=== PATIENT | female | born 1930 | race Caucasian/White ===

== ENCOUNTER → 2016-03-29 | Outpatient (CLI) | payer OTHER, MEDICARE ==
[~2016-03-29] MED LIST: ATV5 PO; CLB200 PO; LEVO100T84 PO; LRT5 PO; NXM/40 PO
[2016-03-29 18:09] LABS: THYROID STIMULATING HORMONE 0.162 uIu/ml (0.300-4.500)
== END | disposition home or self-care (01) ==
LOC: C.LABBFT 16:54
PROVIDERS: ATTEND Internal Medicine
DX: E03.9 Hypothyroidism, unspecified (principal); E55.9 Vitamin D deficiency, unspecified

== ENCOUNTER → 2016-05-10 | Outpatient (CLI) | payer OTHER, MEDICARE | END | disposition home or self-care (01) | LOC: C.LABBFT 14:28 | PROVIDERS: ATTEND Internal Medicine | DX: E03.9 Hypothyroidism, unspecified (principal) ==

== ENCOUNTER → 2016-10-04 | Outpatient (CLI) | payer OTHER, MEDICARE ==
--- NOTE | 2016-10-04 11:20 | DIAGNOSTIC IMAGING REPORT ---
ULTRASOUND OF THE PELVIS CLINICAL HISTORY: Endometrial thickening. COMPARISON STUDY: Pelvic ultrasound dated 10/31/2015 TECHNIQUE: Real-time, grayscale, and color flow sonography of the pelvis is performed transabdominally. Images are reviewed in the transverse and longitudinal planes. The patient declined the endovaginal examination. FINDINGS: Uterus: The uterus is atrophic and heterogeneous in echotexture, measuring 5.7 x 2.4 x 3.1 cm. Endometrium: The endometrium is normal in appearance, and the endometrial stripe is normal in thickness measuring up to 0.5 cm. Ovaries: The ovaries were not visualized on this transabdominal examination. Pelvis: There is no free fluid in the cul-de-sac. No concerning adnexal lesion is seen. IMPRESSION: 1. The endometrium appears thickened for age measure up to 5 mm. Gynecology follow-up is recommended. 2. The ovaries were not visualized on this transabdominal examination. 3. The patient declined the endovaginal assessment. Electronically signed by: Abrahan Pena M.D. 10/04/2016 11:19 AM Dictated Date/Time: 10/04/2016 11:17 AM
== END | disposition home or self-care (01) ==
LOC: C.ULTR 10:28
PROVIDERS: ATTEND Internal Medicine
DX: R93.8 Abnormal findings on diagnostic imaging of other specified body structures (principal)

== ENCOUNTER → 2016-10-22 | Outpatient (CLI) | payer OTHER, MEDICARE ==
[2016-10-22 12:33] LABS: BASO % 0.6 %; BASO ABS # 0.04 K/uL (0-0.2); COMPLETE YES; EOS % 3.1 %; IG% 0.3 %; LYMPH ABS # 1.78 K/uL (1.2-3.4); MEAN CELL VOLUME 93.8 fL (80-100); MEAN CORPUSCULAR HEMOGLOBIN 32.2 pg (25-34); MEAN CORPUSCULAR HGB CONC 34.4 g/dl (32-36); MEAN PLATELET VOLUME 10.5 fL (7.4-10.4); MONO % 8.3 %; NEUT % 62.7 %; PLATELET COUNT 218 K/uL (130-400); RED BLOOD COUNT 4.16 M/uL (4.2-5.4); WHITE BLOOD COUNT 7.13 K/uL (4.8-10.8)
[2016-10-22 12:44] LABS: ALT/SGPT 18 U/L (12-78); AST/SGOT 20 U/L (15-37); BLOOD UREA NITROGEN 16 mg/dl (7-18); BUN/CREATININE RATIO 21.4 (10-20); CALCIUM 9.1 mg/dl (8.5-10.1); CARBON DIOXIDE 29 mmol/L (21-32); CHLORIDE 108 mmol/L (98-107); CREATININE 0.73 mg/dl (0.60-1.20); GLUCOSE 85 mg/dl (70-99); POTASSIUM 4.4 mmol/L (3.5-5.1); SODIUM 142 mmol/L (136-145)
[2016-10-22 12:54] LABS: ALKALINE PHOSPHATASE 84 U/L (45-117)
== END | disposition home or self-care (01) ==
LOC: C.LABBFT 09:58
PROVIDERS: ATTEND Internal Medicine
DX: E03.9 Hypothyroidism, unspecified (principal); R68.81 Early satiety; F03.90 Unspecified dementia, unspecified severity, without behavioral disturbance, psychotic disturbance, mood disturbance, and anxiety; E55.9 Vitamin D deficiency, unspecified

== ENCOUNTER → 2016-10-28 | Outpatient (CLI) | payer OTHER, MEDICARE ==
--- NOTE | 2016-10-28 11:11 | DIAGNOSTIC IMAGING REPORT ---
RIGHT RIBS UNILATERAL W/CHEST CLINICAL HISTORY: 86 years-old Female presenting with RIGHT RIB PAIN Right. TECHNIQUE: PA view of the chest and frontal and oblique views of the right ribs were obtained. COMPARISON: 04/15/2011. FINDINGS: Aortic atherosclerosis. Cardiac silhouette normal in size. Suggestion of calcified lymph nodes projecting over the right hilum. Lungs and pleural spaces clear. Degenerative changes of the bilateral glenohumeral joints. Scoliosis and degenerative change of the spine. Cholecystectomy clips noted. Suggest irregularity at the lateral second rib. Questionable similar irregularity at the lateral third rib. No displaced rib fracture. IMPRESSION: Irregularities of the lateral right second and third ribs may represent fractures. These may not be acute. Correlate clinically for point tenderness. No acute cardiopulmonary disease. Electronically signed by: Bola Valladares M.D. 10/28/2016 11:10 AM Dictated Date/Time: 10/28/2016 11:07 AM
--- NOTE | 2016-10-28 11:15 | DIAGNOSTIC IMAGING REPORT ---
CERVICAL SPINE 4 OR 5 VIEWS CLINICAL HISTORY: 86 years-old Female presenting with RIGHT SIDED ARM AND NECK PAIN. TECHNIQUE: Lateral, bilateral oblique, frontal, and open-mouth odontoid views of the cervical spine were obtained. COMPARISON: None. FINDINGS: Suggestion of 3 mm of retrolisthesis of C4 on C5. No radiographic evidence of fracture or subluxation. Otherwise normal cervical lordosis. Multilevel degenerative change noted. Osseous neural foraminal narrowing noted on the right at C4-5 and C5-6. Less severe changes noted at these levels on the left. The lateral masses of C1 grossly articulate normally with C2. No prevertebral soft tissue swelling. IMPRESSION: Multilevel degenerative changes with osseous neural foraminal narrowing most severe at C4-5 and C5-6, right greater than left. Electronically signed by: Bola Valladares M.D. 10/28/2016 11:14 AM Dictated Date/Time: 10/28/2016 11:12 AM
== END | disposition home or self-care (01) ==
LOC: C.RDSM 10:25
PROVIDERS: ATTEND Family Medicine
DX: M25.511 Pain in right shoulder (principal); M99.71 Connective tissue and disc stenosis of intervertebral foramina of cervical region

== ENCOUNTER → 2017-03-26 | Outpatient (CLI) | payer OTHER, MEDICARE | END | disposition home or self-care (01) | LOC: C.LABBFT 09:04 | PROVIDERS: ATTEND Internal Medicine | DX: E03.9 Hypothyroidism, unspecified (principal) ==